=== PATIENT | male | born 1965 | race Caucasian/White ===

== ENCOUNTER 2024-01-14 09:24 | Emergency (ER) | payer OTHER, MEDICAID ==
[~2024-01-14] VITALS: Ht 177.8 cm; Wt 90.7 kg
[2024-01-14 09:51] VITALS: BP_SYST 137; PULSE 64; RESP 18; TEMP 98.3; O2SAT 98
[2024-01-14] MEDS ORDERED: CYCL10TA24 PO (12:13)
== END 2024-01-14 12:20 | disposition home or self-care (01) ==
LOC: SED 09:24
DX: S13.4XXA Sprain of ligaments of cervical spine, initial encounter (principal); S40.012A Contusion of left shoulder, initial encounter; S09.90XA Unspecified injury of head, initial encounter; R42 Dizziness and giddiness; I10 Essential (primary) hypertension; Z88.0 Allergy status to penicillin; V89.2XXA Person injured in unspecified motor-vehicle accident, traffic, initial encounter; Y93.89 Activity, other specified; Y92.89 Other specified places as the place of occurrence of the external cause; Y99.8 Other external cause status
CPT/HCPCS: 70450-TC; 72125-TC; 73030; 99284